=== PATIENT | male | born 1960 | race Caucasian/White ===

== ENCOUNTER → 2023-09-11 13:57 | Outpatient (CLI) | payer SELFPAY ==
--- NOTE | 2023-09-11 14:00 | DI.RAD.S_ITS ---
PROCEDURE: XR ANKLE LT MIN 3V INDICATIONS: Left ankle strain TECHNIQUE: 3 views of the ankle were acquired. COMPARISON: None. FINDINGS: Bones: Obliquely oriented and mildly displaced fracture of the distal fibula. No significant widening of the medial clear space. There is a small osseous fragment adjacent to the tip of the medial malleolus, may represent a small avulsion fracture. Ankle mortise is normally aligned. No suspicious bony lesions. Plantar and posterior calcaneal spurring. Soft tissues: No tibiotalar joint effusion. Achilles tendon appears normal. IMPRESSION: 1. Mildly displaced fracture of the distal fibula. 2. Small osseous fragment adjacent to the tip of the medial malleolus, likely representing a small avulsion fracture. Dictated by: Fabián Byrne M.D. on 09/11/2023 at 14:55 Approved by: Fabián Byrne M.D. on 09/11/2023 at 15:00
== END ==
PROVIDERS: Referring Provider Nurse Practitioner Family; Visit Provider Nurse Practitioner Family
DX: S96.912A Strain of unspecified muscle and tendon at ankle and foot level, left foot, initial encounter (principal); S82.832A Other fracture of upper and lower end of left fibula, initial encounter for closed fracture
CPT/HCPCS: 73610